=== PATIENT | male | born 1935 | race Caucasian/White ===

== ENCOUNTER → 2016-07-05 | Outpatient (CLI) | payer OTHER ==
--- NOTE | 2016-07-05 17:59 | DIAGNOSTIC IMAGING REPORT ---
RIBS UNILATERAL WITH PA CHEST CLINICAL HISTORY: R SIDED RIB PAIN pain COMPARISON STUDY: None FINDINGS: Nondisplaced cortical fractures right eighth and ninth ribs. Remaining ribs are unremarkable. Lungs are clear. No evidence pneumothorax. IMPRESSION: Nondisplaced cortical fractures right eighth and ninth ribs. Electronically signed by: Mark Mckeon M.D. 07/05/2016 5:58 PM Dictated Date/Time: 07/05/2016 5:57 PM
[2016-07-05 19:13] LABS: BASO % 0.3 %; BASO ABS # 0.02 K/uL (0-0.2); COMPLETE YES; EOS % 2.6 %; HEMATOCRIT 43.3 % (42-52); IG% 0.2 %; LYMPH % 19.5 %; MEAN CELL VOLUME 92.9 fL (80-100); MEAN CORPUSCULAR HEMOGLOBIN 29.6 pg (25-34); MEAN CORPUSCULAR HGB CONC 31.9 g/dl (32-36); MEAN PLATELET VOLUME 9.6 fL (7.4-10.4); MONO % 8.5 %; NEUT % 68.9 %; PLATELET COUNT 234 K/uL (130-400); RED BLOOD COUNT 4.66 M/uL (4.7-6.1); WHITE BLOOD COUNT 6.15 K/uL (4.8-10.8)
[2016-07-05 19:40] LABS: ALT/SGPT 32 U/L (12-78); AST/SGOT 19 U/L (15-37); BLOOD UREA NITROGEN 17 mg/dl (7-18); BUN/CREATININE RATIO 15.9 (10-20); CALCIUM 8.7 mg/dl (8.5-10.1); CARBON DIOXIDE 31 mmol/L (21-32); CHLORIDE 107 mmol/L (98-107); GLUCOSE 152 mg/dl (70-99); POTASSIUM 4.5 mmol/L (3.5-5.1); SODIUM 142 mmol/L (136-145)
[2016-07-05 19:48] LABS: ALKALINE PHOSPHATASE 57 U/L (45-117)
== END | disposition home or self-care (01) ==
LOC: C.RAD 17:34
PROVIDERS: ATTEND Family Medicine
DX: S22.41XA Multiple fractures of ribs, right side, initial encounter for closed fracture (principal); X58.XXXA Exposure to other specified factors, initial encounter; R42 Dizziness and giddiness; E03.9 Hypothyroidism, unspecified

== ENCOUNTER → 2016-07-12 | Outpatient (CLI) | payer OTHER ==
--- NOTE | 2016-07-25 08:39 | CODING QUERY MEDICAL NECESSITY ---
SUPPORTING DIAGNOSIS NEEDED Dr. Blood, A supporting diagnosis is required for the test/procedure performed on this patient in order for us to be reimbursed by the patient's insurance. Please provide a supporting diagnosis for the following test/procedure listed below next to the test name along with your signature. *If there is no additional diagnosis for this patient that would support the following test/procedure please document that below next to the test/procedure. Test(s)/Procedure(s) that require a supporting diagnosis: * ([id number]) DXA BONE DENSITY, AXIAL DIAGNOSIS: DATE OF SERVICE: 07/12/16 Provider Signature: Date: Thank you Shahbaz Fontaine [facility] Information Management Once completed, please kindly fax back to [phone] For questions please call [phone]
== END | disposition home or self-care (01) ==
LOC: C.MAMM 15:07
PROVIDERS: ATTEND Family Medicine
DX: S22.41XA Multiple fractures of ribs, right side, initial encounter for closed fracture (principal); X58.XXXA Exposure to other specified factors, initial encounter; M85.80 Other specified disorders of bone density and structure, unspecified site